=== PATIENT | male | born 1970 | race Two or more races ===

== ENCOUNTER 2022-05-31 14:29 | Emergency (ER) | payer SELFPAY ==
[~2022-05-31] VITALS: Ht 167.6 cm; Wt 63.5 kg
--- NOTE | 2022-05-31 14:45 | NUR ---
TO ER BED 13, BIB [facility] 60 FROM [facility] C/O GENERALIZED BODY PAIN, AAOX3, BREATHING EVEN AND NON LABORED, CONNECTED TO MONITOR, AWAITING MD ORDERS
[2022-05-31] MEDS ORDERED: IBUPROFEN 600 MG TABLET PO ONE (15:30)
[2022-05-31] MEDS ORDERED: SULF1TAB47 PO (15:31)
[2022-05-31] MEDS ORDERED: IBUPROFEN 600 MG TABLET ONE (15:34)
[2022-05-31 15:41] VITALS: BP 112/71
--- NOTE | 2022-05-31 15:41 | NUR ---
Patient discharged to home in stable condition. Written and verbal after care instructions given. Patient verbalizes understanding of instruction.
== END 2022-05-31 15:42 | disposition home or self-care (01) ==
LOC: ER 14:34
DX: R30.0 Dysuria (principal); R52 Pain, unspecified; F17.200 Nicotine dependence, unspecified, uncomplicated; Z60.2 Problems related to living alone